=== PATIENT | male | born 1985 | race Caucasian/White ===

== ENCOUNTER → 2019-11-27 | Outpatient (CLI) | payer OTHER | LOC: MHCPAIN 10:50 | DX: M43.17 Spondylolisthesis, lumbosacral region (principal); M47.817 Spondylosis without myelopathy or radiculopathy, lumbosacral region; M54.5 Low back pain; M53.3 Sacrococcygeal disorders, not elsewhere classified; G89.29 Other chronic pain; M54.16 Radiculopathy, lumbar region | CPT/HCPCS: G0463 ==

== ENCOUNTER → 2020-03-04 | Outpatient (CLI) | payer OTHER | LOC: MHCPAIN 12:02 | DX: M47.817 Spondylosis without myelopathy or radiculopathy, lumbosacral region (principal); M53.3 Sacrococcygeal disorders, not elsewhere classified; G57.02 Lesion of sciatic nerve, left lower limb; G89.29 Other chronic pain | CPT/HCPCS: G0463 ==

== ENCOUNTER → 2020-03-05 | Outpatient (CLI) | payer OTHER | LOC: MHCPAIN 09:50 | DX: M47.817 Spondylosis without myelopathy or radiculopathy, lumbosacral region (principal); M54.16 Radiculopathy, lumbar region | CPT/HCPCS: J1100; Q9967 ==

== ENCOUNTER → 2020-03-18 | Outpatient (CLI) | payer OTHER | LOC: MHCPAIN 13:27 | DX: M47.817 Spondylosis without myelopathy or radiculopathy, lumbosacral region (principal); M54.5 Low back pain; M53.3 Sacrococcygeal disorders, not elsewhere classified; G89.29 Other chronic pain | CPT/HCPCS: G0463 ==

== ENCOUNTER → 2020-04-02 | Outpatient (CLI) | payer OTHER | LOC: MHCPAIN 08:46 | DX: M47.817 Spondylosis without myelopathy or radiculopathy, lumbosacral region (principal); M54.5 Low back pain ==

== ENCOUNTER → 2020-04-06 | Outpatient (CLI) | payer OTHER | LOC: MHCPAIN 13:40 | DX: M47.817 Spondylosis without myelopathy or radiculopathy, lumbosacral region (principal); M54.5 Low back pain ==

== ENCOUNTER → 2020-04-09 | Outpatient (CLI) | payer OTHER | LOC: MHCPAIN 08:47 | DX: M47.817 Spondylosis without myelopathy or radiculopathy, lumbosacral region (principal); M54.5 Low back pain | CPT/HCPCS: G0463; J1100; J2250; J3010 ==

== ENCOUNTER → 2020-04-13 | Outpatient (CLI) | payer OTHER | LOC: MHCPAIN 12:01 | DX: M47.817 Spondylosis without myelopathy or radiculopathy, lumbosacral region (principal); M54.5 Low back pain; M53.3 Sacrococcygeal disorders, not elsewhere classified | CPT/HCPCS: J1100; J2250; J3010 ==

== ENCOUNTER → 2020-06-17 | Outpatient (CLI) | payer OTHER | LOC: MHCPAIN 09:03 | DX: M47.817 Spondylosis without myelopathy or radiculopathy, lumbosacral region (principal); M54.5 Low back pain; M53.3 Sacrococcygeal disorders, not elsewhere classified; G89.29 Other chronic pain | CPT/HCPCS: G0463 ==